=== PATIENT | female | born 1995 | race African-American/Black ===

== ENCOUNTER 2025-09-21 14:01 | Emergency (ER) | payer MEDICAID ==
[~2025-09-21] VITALS: Ht 165.1 cm; Wt 72.0 kg
[2025-09-21 14:23] VITALS: O2SAT 100
[2025-09-21 16:54] LABS: COLOR URINE YELLOW (YELLOW)
[2025-09-21 16:55] LABS: CLARITY URINE CLEAR (CLEAR); GLUCOSE URINE NEGATIVE (NEGATIVE); KETONES URINE NEGATIVE (NEGATIVE); NITRITE URINE NEGATIVE (NEGATIVE); OCCULT BLOOD URINE 3+ (NEGATIVE); PH URINE 6.0 (4.5-8.0); PROTEIN URINE 2+ (NEGATIVE); SPECIFIC GRAVITY URINE 1.018 (1.005-1.030); UROBILINOGEN URINE 0.2 E.U./dL (0.2-1.0)
[2025-09-21 16:56] LABS: LEUKOCYTE ESTERASE URINE TRACE (NEGATIVE)
[2025-09-21 16:57] LABS: BACTERIA URINE 1+; SQUAMOUS EPITHELIAL CELL URINE FEW /lpf (RARE/1+)
[2025-09-21 18:39] LABS: BASOPHILS % 0.5 % (0.0-2.0); EOSINOPHILS % 4.7 % (0.0-5.0); HEMATOCRIT. 28.7 % (36.0-48.0); HEMOGLOBIN. 8.7 g/dL (12.0-16.0); LYMPHOCYTES % 42.1 % (20.0-50.0); MEAN PLATELET VOLUME 9.2 fl (7.4-10.4); MONOCYTES % 8.9 % (2.0-8.0); NEUTROPHILS % 43.8 % (40.0-76.0); PLATELET 341 x1000/uL (130-400); RED BLOOD CELL COUNT 4.25 mill/uL (4.2-5.4); RED CELL DISTRIBUTION WIDTH 19.7 % (11.6-14.6)
[2025-09-21 18:40] LABS: ADD RBC MORPHOLOGY YES
[2025-09-21 18:47] LABS: CREATININE 0.6 mg/dL (0.6-1.0); UREA NITROGEN BLOOD 6 mg/dL (9-23)
[2025-09-21] MEDS ORDERED: CEPH500C2 MT (18:58)
[2025-09-21] MEDS ORDERED: FERR236T3 MT (19:04)
[2025-09-21 19:07] LABS: HCG SCREEN NEGATIVE
[2025-09-21 19:36] VITALS: BP 115/66; PULSE 67; RESP 16; TEMP 36.8; O2SAT 100
[2025-09-21 19:39] LABS: PLATELET ESTIMATE NORMAL
== END 2025-09-21 19:42 | disposition home or self-care (01) ==
LOC: ER 14:01
DX: R30.0 Dysuria (principal); R30.9 Painful micturition, unspecified
CPT/HCPCS: 36415; 80048; 81003; 81025; 84703; 85025; 99283